=== PATIENT | male | born 1935 | race Caucasian/White ===

== ENCOUNTER 2017-11-22 11:11 | Inpatient (IN) | payer OTHER, MEDICARE ==
[~2017-11-22] VITALS: Ht 182.9 cm; Wt 80.8 kg
[2017-11-22 11:18] VITALS: BP 192/85; PULSE 88; RESP 26; TEMP 98.5; O2SAT 88
[2017-11-22] MEDS ORDERED: methylPREDNISolone SOD SUCC 125 MG/2 ML VIAL IV PUSH ONE (11:45)
[2017-11-22] MEDS ORDERED: SODIUM CHLORIDE 0.9% FLUSH 10 ML FLUSH IVF PRN (11:45)
[2017-11-22] MEDS ORDERED: NOVOLOGMXP SQ (11:49)
[2017-11-22] MEDS ORDERED: APIX5TAB PO (11:49)
[2017-11-22] MEDS ORDERED: LANTUS2P SQ (11:49)
--- NOTE | 2017-11-22 11:56 | PD ---
HPI Chief Complaint: Respiratory Symptoms Time Seen by Provider: 11:28 Travel History International Travel<30 days: No Contact w/Intl Traveler<30days: No Traveled to known affect area: No History of Present Illness HPI This patient complains of shortness of breath. Duration 2 days. Severity is severe. He arrives with hypoxic respiratory failure. History of COPD he is here on vacation and did not bring his nebulizer. He complains of cough bringing up some holcomb colored phlegm. No fever or chest pain. No alleviating factors. Symptoms exacerbated by his noncompliance. He quit smoking many years ago. [facility] Social History Alcohol Use: No Tobacco Use: No Substance Use: No Allergies-Medications (Allergen,Severity, Reaction): Coded Allergies: No Known Allergies (Unverified , 11/22/17) Reported Meds & Prescriptions Reported Meds & Active Scripts Active Reported Eliquis (Apixaban) 5 Mg Tab 5 Mg PO BID Lantus Inj (Insulin Glargine) 1,000 Unit/10 Ml Vial 1 Units SQ HS Novolog Mix 70-30 Inj (Insulin Aspart Prota 70%/Aspart 30%) 1,000 Unit/10 Ml Vial 1 Units SQ Review of Systems General / Constitutional: No: Fever Eyes: No: Visual changes HENT: Positive: Congestion, No: Headaches Cardiovascular: No: Chest Pain or Discomfort Respiratory: Positive: Cough, Shortness of Breath, Wheezing Gastrointestinal: No: Abdominal Pain Genitourinary: No: Dysuria Musculoskeletal: No: Pain Skin: No Rash Neurologic: No: Weakness Psychiatric: No: Depression Endocrine: No: Polydipsia Hematologic/Lymphatic: No: Easy Bruising Physical Exam Narrative GENERAL: Well-nourished, well-developed patient in respiratory distress. SKIN: Focused skin assessment reveals no rash and nodules. Skin is Warm and dry. HEAD: Atraumatic. Normocephalic. EYES: Pupils equal and round. No scleral icterus. No injection or drainage. ENT: No nasal bleeding or discharge. Mucous membranes pink and moist. NECK: Trachea midline. No JVD. CARDIOVASCULAR: Regular rate and rhythm. No murmur appreciated. RESPIRATORY: Positive accessory muscle use. Diffuse expiratory wheezing and rhonchi. Breath sounds equal bilaterally. GASTROINTESTINAL: Abdomen soft, non-tender, nondistended. Hepatic and splenic margins not palpable. MUSCULOSKELETAL: No obvious deformities. No clubbing. No cyanosis. No edema. NEUROLOGICAL: Awake and alert. No obvious cranial nerve deficits. Motor grossly within normal limits. Normal speech. PSYCHIATRIC: Appropriate mood and affect; insight and judgment normal. Data Data Last Documented VS Vital Signs Date Time Temp Pulse Resp B/P (MAP) Pulse Ox O2 Delivery O2 Flow Rate FiO2 11/22/17 11:41 92 4.00 11/22/17 11:38 107 20 Nasal Cannula 11/22/17 11:18 98.5 192/85 (120) Orders Orders Complete Blood Count With Diff (11/22/17 11:38) Basic Metabolic Panel (Bmp) (11/22/17 11:38) Influenzae A/B Antigen (11/22/17 11:38) Iv Access Insert/Monitor (11/22/17 11:38) Electrocardiogram (11/22/17 11:38) Ecg Monitoring (11/22/17 11:38) Oximetry (11/22/17 11:38) Oxygen Administration (11/22/17 11:38) Chest, Single Ap (11/22/17 11:38) Sodium Chloride 0.9% Flush (Ns Flush) (11/22/17 11:45) Methylprednisolone So Succ Inj (Solumedr (11/22/17 11:45) Albuterol-Ipratropium Neb (Duoneb Neb) (11/22/17 11:45) Albuterol-Ipratropium Neb (Duoneb Neb) (11/22/17 13:15) Labs Laboratory Tests Test 11/22/17 11:40 White Blood Count 13.4 TH/MM3 Red Blood Count 4.74 MIL/MM3 Hemoglobin 14.1 GM/DL Hematocrit 42.7 % Mean Corpuscular Volume 90.0 FL Mean Corpuscular Hemoglobin 29.9 PG Mean Corpuscular Hemoglobin Concent 33.2 % Red Cell Distribution Width 13.8 % Platelet Count 113 TH/MM3 Mean Platelet Volume 10.0 FL Neutrophils (%) (Auto) 90.7 % Lymphocytes (%) (Auto) 3.0 % Monocytes (%) (Auto) 5.7 % Eosinophils (%) (Auto) 0.4 % Basophils (%) (Auto) 0.2 % Neutrophils # (Auto) 12.2 TH/MM3 Lymphocytes # (Auto) 0.4 TH/MM3 Monocytes # (Auto) 0.8 TH/MM3 Eosinophils # (Auto) 0.0 TH/MM3 Basophils # (Auto) 0.0 TH/MM3 CBC Comment DIFF FINAL Differential Comment Blood Urea Nitrogen 18 MG/DL Creatinine 1.67 MG/DL Random Glucose 335 MG/DL Calcium Level 8.8 MG/DL Sodium Level 139 MEQ/L Potassium Level 4.2 MEQ/L Chloride Level 102 MEQ/L Carbon Dioxide Level 24.6 MEQ/L Anion Gap 12 MEQ/L Estimat Glomerular Filtration Rate 39 ML/MIN MDM Medical Decision Making Medical Screen Exam Complete: Yes Emergency Medical Condition: Yes Medical Record Reviewed: Yes Differential Diagnosis COPD, pneumonia, pneumothorax Narrative Course I have reviewed the patient's electronic medical record. This patient arrives critically ill and acute hypoxic respiratory failure I gave him a series of 3 nebulizer treatments and IV steroids and placed him on oxygen Room air saturation is in the upper 80s On 4 L nasal cannula is 92% I reviewed his chest x-ray which shows some nodularity but no pneumothorax or infiltrate Labs sent Labs are reviewed and in general fairly normal I gave him a fourth nebulizer treatment Patient remained short of breath and will require hospitalization He seems improved after the above treatments but still requiring significant oxygen Currently 94% on 4 L I placed a call to the medical residents to discuss Critical Care Narrative Aggregate critical care time was 40 minutes. Time to perform other separately billable procedures was not included in the critical care time. My time did not include minutes spent treating any other patients simultaneously or on activities that did not directly contribute to the patient's treatment. The services I provided to this patient were to treat and/or prevent clinically significant deterioration that could result in: Respiratory failure, cardiopulmonary arrest, cardiac arrhythmia I provided critical care services requiring my management, as noted below: Chart data review, documentation time, medication orders and management, vital sign assessments/reviewing monitor data, ordering and reviewing lab tests, ordering and interpreting/reviewing x-rays and diagnostic studies, care of the patient and discussion of the patient with the admitting physicians. Diagnosis Primary Impression: Acute respiratory failure with hypoxia Additional Impression: COPD with acute exacerbation Admitting Information Admitting Physician Requests: Harshil Lee MD November 22, 2017 11:56
--- NOTE | 2017-11-22 12:11 | RADRPT ---
EXAM DATE: 11/22/2017 12:00 PM EDT AGE/SEX: 82 years / Male INDICATIONS: Short of breath and difficulty breathing. CLINICAL DATA: This is the patient's initial encounter. Patient reports that signs and symptoms have been present for 1 day and indicates a pain score of 0/10. MEDICAL/SURGICAL HISTORY: Hypertension. Chronic obstructive pulmonary disease. Carcinoma, col on. . Colon resection. COMPARISON: No prior exams available for comparison. FINDINGS: There are 2 faint nodular densities in the right lung each measuring about 1 cm in diameter. No prior study for comparison. Further evaluation with chest CT is recommended. No effusion or pneumothorax. Heart size normal. No focal consolidation. CONCLUSION: Nodular densities in the right lung. Further evaluation with chest CT is recommended. Electronically signed by: Phil Tompkins MD 11/22/2017 12:09 PM EDT
[2017-11-22 12:13] LABS: AUTOMATED NEUTROPHIL # 12.2 TH/MM3 (1.8-7.7); BASOPHIL % 0.2 % (0.0-2.0); EOSINOPHIL % 0.4 % (0.0-4.0); HEMATOCRIT 42.7 % (39.0-51.0); HEMOGLOBIN 14.1 GM/DL (13.0-17.0); LYMPHOCYTE # 0.4 TH/MM3 (1.0-4.8); MEAN CORPUSCULAR HEMOGLOBIN 29.9 PG (27.0-34.0); MEAN CORPUSCULAR HGB CONC 33.2 % (32.0-36.0); MONO % 5.7 % (0.0-8.0); MONOCYTE # 0.8 TH/MM3 (0-0.9); NEUT % 90.7 % (16.0-70.0); PLATELET COUNT 113 TH/MM3 (150-450); RED BLOOD COUNT 4.74 MIL/MM3 (4.50-5.90); RED CELL DISTRIBUTION WIDTH 13.8 % (11.6-17.2); WHITE BLOOD COUNT 13.4 TH/MM3 (4.0-11.0)
[2017-11-22] MEDS: RESP: ALBUTEROL 2.5 MG/IPRATROPIUM 0.5 MG NEB (SCH) INH ×2 (12:22→19:27)
[2017-11-22 12:34] LABS: BICARBONATE 24.6 MEQ/L (21.0-32.0); CALCIUM 8.8 MG/DL (8.5-10.1); CREATININE 1.67 MG/DL (0.60-1.30)
[2017-11-22] MEDS ORDERED: RESP: ALBUTEROL 2.5 MG/IPRATROPIUM 0.5 MG NEB (SCH) NEB ONE (13:15)
[2017-11-22] MEDS ORDERED: MAGNESIUM HYDROXIDE SUSP 30 ML CUP PO PRN (14:15)
[2017-11-22] MEDS ORDERED: MORPHINE SULFATE 2 MG/ML SYRINGE IV PUSH PRN ×2 (14:15)
[2017-11-22] MEDS ORDERED: ONDANSETRON ODT 4 MG TAB PO PRN (14:15)
[2017-11-22] MEDS ORDERED: NALOXONE HCL 0.4 MG/ML AMP IV PUSH PRN (14:15)
[2017-11-22] MEDS ORDERED: RESP: ALBUTEROL 2.5 MG/3 ML NEB (PRN) INH (14:15)
[2017-11-22] MEDS ORDERED: SODIUM CHLORIDE 0.9% FLUSH 10 ML FLUSH IV FLUSH PRN (14:15)
--- NOTE | 2017-11-22 14:42 | HHI.HP ---
HPI Service [facility] Primary Care Physician Non-Staff Admission Diagnosis Diagnoses: Travel History International Travel<30 Days: No Contact w/Intl Traveler <30 Da: No Traveled to Known Affected Are: No History of Present Illness Mr. Villafuerte is an 82 year old male. He is vacationing here from [place], [place]. he came in with shortness of breath. Productive cough is also present. No pneumonia is present on imaging. Bronchitis could be present. He has COPD at baseline. He has had exacerbations and hospitalizations for COPD exacerbation before in the past. No fevers reported. No chest pain. Vital signs show hypoxia at time of arrival the patient has had good response thus far to steroids, breathing treatments, and oxygen. He is resting comfortably in bed when seen. His sister and are present. No other complaints or concerns today. Review of Systems Constitutional: COMPLAINS OF: Fatigue, DENIES: Fever, Chills Eyes: COMPLAINS OF: Vision loss, DENIES: Diplopia, Eye inflammation, Eye pain Ears, nose, mouth, throat: COMPLAINS OF: Hearing loss, DENIES: Vertigo, Nasal discharge Respiratory: COMPLAINS OF: Cough, Wheezing, Shortness of breath Cardiovascular: DENIES: Chest pain, Palpitations, Syncope Gastrointestinal: DENIES: Abdominal pain, Black stools, Bloody stools Musculoskeletal: DENIES: Joint pain, Muscle aches, Stiffness Integumentary: DENIES: Abnormal pigmentation, Nail changes, Pruritus, Rash Hematologic/lymphatic: DENIES: Bruising, Lymphadenopathy Immunologic/allergic: DENIES: Eczema, Urticaria Neurologic: DENIES: Abnormal gait, Headache, Paresthesias Psychiatric: DENIES: Anxiety, Confusion, Mood changes, Hallucinations Except as stated in HPI: all other systems reviewed are Neg Past Family Social History Past Medical History COPD History of pericarditis Diabetes mellitus type 2 Glaucoma Presbycusis History of colon cancer Past Surgical History Partial colectomy related to colon cancer Reported Medications Reported Meds & Active Scripts Active Reported Eliquis (Apixaban) 5 Mg Tab 5 Mg PO BID Lantus Inj (Insulin Glargine) 1,000 Unit/10 Ml Vial 1 Units SQ HS Novolog Mix 70-30 Inj (Insulin Aspart Prota 70%/Aspart 30%) 1,000 Unit/10 Ml Vial 1 Units SQ Allergies: Coded Allergies: No Known Allergies (Unverified , 11/22/17) Family History Diabetes mellitus type 2 and CVA are present in multiple family members. The patient's father had congestive heart failure. 2 of the patient's brothers had lung cancer (smoking-related) Social History Past history of smoking, patient has not smoked for greater than 1 decade No alcohol abuse No illicit drug abuse Physical Exam Vital Signs Vital Signs Date Time Temp Pulse Resp B/P (MAP) Pulse Ox O2 Delivery O2 Flow Rate FiO2 11/22/17 11:41 92 4.00 11/22/17 11:38 107 20 92 Nasal Cannula 4.00 11/22/17 11:18 98.5 88 26 192/85 (120) 88 Physical Exam GENERAL: NAD, A&Ox3 HEAD: Normocephalic. NECK: Supple, trachea midline. No lymphadenopathy. EYES: No scleral icterus. No injection or drainage. CARDIOVASCULAR: Regular rate and rhythm without murmurs, gallops, or rubs. RESPIRATORY: Breath sounds equal bilaterally. No accessory muscle use. GASTROINTESTINAL: Abdomen soft, non-tender, nondistended. MUSCULOSKELETAL: No cyanosis, or edema. SKIN: Warm and dry. NEURO: No focal neurological deficitis. Laboratory Laboratory Tests Test 11/22/17 11:40 White Blood Count 13.4 Red Blood Count 4.74 Hemoglobin 14.1 Hematocrit 42.7 Mean Corpuscular Volume 90.0 Mean Corpuscular Hemoglobin 29.9 Mean Corpuscular Hemoglobin Concent 33.2 Red Cell Distribution Width 13.8 Platelet Count 113 Mean Platelet Volume 10.0 Neutrophils (%) (Auto) 90.7 Lymphocytes (%) (Auto) 3.0 Monocytes (%) (Auto) 5.7 Eosinophils (%) (Auto) 0.4 Basophils (%) (Auto) 0.2 Neutrophils # (Auto) 12.2 Lymphocytes # (Auto) 0.4 Monocytes # (Auto) 0.8 Eosinophils # (Auto) 0.0 Basophils # (Auto) 0.0 CBC Comment DIFF FINAL Differential Comment Blood Urea Nitrogen 18 Creatinine 1.67 Random Glucose 335 Calcium Level 8.8 Sodium Level 139 Potassium Level 4.2 Chloride Level 102 Carbon Dioxide Level 24.6 Anion Gap 12 Estimat Glomerular Filtration Rate 39 Date/Time Source Procedure Growth Status 11/22/17 11:46 Nasal Washing Influenza Types A,B Antigen (ABDOULAYE) - Final NEGATIVE FOR FLU A AND B ANTIGEN.... Complete Result Diagram: 11/22/17 1140 11/22/17 1140 Imaging Last Impressions Chest X-Ray 11/22/17 1138 Signed Impressions: CONCLUSION: Nodular densities in the right lung. Further evaluation with chest CT is recomm ended. Caprini VTE Risk Assessment Caprini VTE Risk Assessment: Mod/High Risk (score >= 2) Caprini Risk Assessment Model Point Value = 1 Point Value = 2 Point Value = 3 Point Value = 5 Age 41-60 Minor surgery BMI > 25 kg/m2 Swollen legs Varicose veins or History of unexplained or recurrent spontaneous Oral contraceptives or hormone replacement Sepsis (< 1 month) Serious lung disease, including pneumonia (< 1 month) Abnormal pulmonary function Acute myocardial infarction Congestive heart failure (< 1 month) History of inflammatory bowel disease Medical patient at bed rest Age 61-74 Arthroscopic surgery Major open surgery (> 45 min) Laparoscopic surgery (> 45 min) Malignancy Confined to bed (> 72 hours) Immobilizing plaster cast Central venous access Age >= 75 History of VTE Family history of VTE Factor V Leiden Prothrombin [id number] Lupus anticoagulant Anticardiolipin antibodies Elevated serum homocysteine Heparin-induced thrombocytopenia Other congenital or acquired thrombophilia Stroke (< 1 month) Elective arthroplasty Hip, pelvis, or leg fracture Acute spinal cord injury (< 1 month) Prophylaxis Regimen Total Risk Factor Score Risk Level Prophylaxis Regimen 0-1 Low Early ambulation 2 Moderate Order ONE of the following: *Sequential Compression Device (SCD) *Heparin 5000 units SQ BID 3-4 Higher Order ONE of the following medications: *Heparin 5000 units SQ TID *Enoxaparin/Lovenox 40 mg SQ daily (WT < 150 kg, CrCl > 30 mL/min) *Enoxaparin/Lovenox 30 mg SQ daily (WT < 150 kg, CrCl > 10-29 mL/min) *Enoxaparin/Lovenox 30 mg SQ BID (WT < 150 kg, CrCl > 30 mL/min) AND/OR *Sequential Compression Device (SCD) 5 or more Highest Order ONE of the following medications: *Heparin 5000 units SQ TID (Preferred with Epidurals) *Enoxaparin/Lovenox 40 mg SQ daily (WT < 150 kg, CrCl > 30 mL/min) *Enoxaparin/Lovenox 30 mg SQ daily (WT < 150 kg, CrCl > 10-29 mL/min) *Enoxaparin/Lovenox 30 mg SQ BID (WT < 150 kg, CrCl > 30 mL/min) AND *Sequential Compression Device (SCD) Assessment and Plan Problem List: (1) Acute respiratory failure with hypoxia ICD Code: J96.01 - Acute respiratory failure with hypoxia Status: Acute (2) COPD with acute exacerbation ICD Code: J44.1 - Chronic obstructive pulmonary disease with (acute) exacerbation Status: Acute Assessment and Plan 82-year-old male admitted secondary to COPD exacerbation with hypoxia COPD exacerbation Hypoxia Continue oxygen supplements as needed Schedule duo nebs When necessary albuterol Azithromycin Systemic steroids Follow for improvement in respiratory status Follow for improvement in exertional tolerance next Diabetes mellitus type 2 Follow blood sugars Insulin sliding scale Diabetic diet DVT prophylaxis Lovenox, SCDs Physician Certification 2 Midnight Certification Type: Admission for Inpatient Services Order for Inpatient Services The services are ordered in accordance with Medicare regulations or non- Medicare payer requirements, as applicable. In the case of services not specified as inpatient-only, they are appropriately provided as inpatient services in accordance with the 2-midnight benchmark. Estimated LOS (days): 2 days is the estimated time the patient will need to remain in the hospital, assuming treatment plan goals are met and no additional complications. Post-Hospital Plan: Home Oswaldo Milian MD November 22, 2017 14:42
[2017-11-22] MEDS ORDERED: GLUCAGON 1 MG/ML VIAL OTHER PRN (14:45)
[2017-11-22] MEDS ORDERED: DEXTROSE 50% IN WATER 50 ML VIAL(D50) IV PUSH PRN (14:45)
[2017-11-22] MEDS ORDERED: ENOXAPARIN SODIUM 40 MG/0.4 ML SYRINGE SQ SCH (15:00)
[2017-11-22 16:18] VITALS: BP 142/68; PULSE 94; RESP 22; O2SAT 94
[2017-11-22] MEDS: AZITHROMYCIN INJ 500 MG in SODIUM CHLOR 0.9% 250 ML INJ 250 ML IV SCH (16:24)
[2017-11-22 17:45] VITALS: BP 124/57; PULSE 81; RESP 18; TEMP 98; O2SAT 93
[2017-11-22] MEDS: INSULIN ASPART SUPPLEMENTAL SCALE SQ SCH ×2 (18:25→20:49)
[2017-11-22 19:27] VITALS: O2SAT 92
[2017-11-22 20:00] VITALS: BP 160/70; PULSE 85; RESP 19; TEMP 98.3; O2SAT 95
[2017-11-22] MEDS ORDERED: INSULIN DETEMIR 100 UNITS/ML VIAL SQ SCH ×2 (21:00)
[2017-11-22] MEDS ORDERED: INSULIN ASPART 1,000 UNITS/10 ML VIAL SQ ONE (21:15)
[2017-11-22] MEDS ORDERED: ZOLPIDEM TARTRATE 5 MG TAB PO ONE (21:30)
[2017-11-22] MEDS: APIXABAN 5 MG TABLET PO SCH (22:04)
[2017-11-22] MEDS: predniSONE 20 MG TAB PO SCH (22:08)
[2017-11-22] MEDS: SODIUM CHLORIDE 0.9% FLUSH 10 ML FLUSH IV FLUSH SCH (22:09)
[2017-11-23] VITALS: BP 120/58; PULSE 76; RESP 17; TEMP 98.2; O2SAT 97
[2017-11-23 04:00] VITALS: BP 143/65; PULSE 80; RESP 17; TEMP 98.3; O2SAT 93
[2017-11-23 07:23] LABS: AUTOMATED NEUTROPHIL # 10.7 TH/MM3 (1.8-7.7); BASOPHIL % 0.1 % (0.0-2.0); HEMATOCRIT 37.6 % (39.0-51.0); HEMOGLOBIN 12.4 GM/DL (13.0-17.0); LYMPH % 3.1 % (9.0-44.0); LYMPHOCYTE # 0.3 TH/MM3 (1.0-4.8); MEAN CELL VOLUME 89.6 FL (80.0-100.0); MEAN CORPUSCULAR HEMOGLOBIN 29.5 PG (27.0-34.0); MEAN CORPUSCULAR HGB CONC 32.9 % (32.0-36.0); MEAN PLATELET VOLUME 10.6 FL (7.0-11.0); MONO % 2.4 % (0.0-8.0); MONOCYTE # 0.3 TH/MM3 (0-0.9); NEUT % 94.4 % (16.0-70.0); PLATELET COUNT 99 TH/MM3 (150-450); RED BLOOD COUNT 4.19 MIL/MM3 (4.50-5.90); RED CELL DISTRIBUTION WIDTH 13.9 % (11.6-17.2); WHITE BLOOD COUNT 11.4 TH/MM3 (4.0-11.0)
[2017-11-23] MEDS: RESP: ALBUTEROL 2.5 MG/IPRATROPIUM 0.5 MG NEB (SCH) INH ×2 (07:49→13:48)
[2017-11-23 07:50] VITALS: O2SAT 91
[2017-11-23 08:00] VITALS: BP 154/68; PULSE 92; RESP 18; TEMP 98.5; O2SAT 95
[2017-11-23] MEDS: APIXABAN 5 MG TABLET PO SCH (08:19)
[2017-11-23] MEDS: SODIUM CHLORIDE 0.9% FLUSH 10 ML FLUSH IV FLUSH SCH (08:19)
[2017-11-23] MEDS: predniSONE 20 MG TAB PO SCH (08:19)
[2017-11-23] MEDS: INSULIN ASPART SUPPLEMENTAL SCALE SQ SCH (08:19)
[2017-11-23 08:36] LABS: ALBUMIN 2.9 GM/DL (3.4-5.0); ALKALINE PHOSPHATASE 226 U/L (45-117); ALT (GPT) 15 U/L (12-78); AST (GOT) 13 U/L (15-37); BICARBONATE 22.2 MEQ/L (21.0-32.0); BLOOD UREA NITROGEN 35 MG/DL (7-18); CALCIUM 8.6 MG/DL (8.5-10.1); CHLORIDE 104 MEQ/L (98-107); CREATININE 1.79 MG/DL (0.60-1.30); GLOMERULAR FILTRATION RATE 36 ML/MIN (>89); GLUCOSE,RANDOM 440 MG/DL (74-106); SODIUM (NA) 138 MEQ/L (136-145); TOTAL BILIRUBIN ADULT 0.3 MG/DL (0.2-1.0); TOTAL PROTEIN 6.8 GM/DL (6.4-8.2)
[2017-11-23 12:00] VITALS: BP 150/73; PULSE 89; RESP 18; TEMP 98.3; O2SAT 94
[2017-11-23] MEDS ORDERED: GLUCAGON 1 MG/ML VIAL OTHER PRN ×2 (12:00→14:15)
[2017-11-23] MEDS ORDERED: INSULIN ASPART SUPPLEMENTAL SCALE SQ SCH (12:00)
[2017-11-23] MEDS ORDERED: DEXTROSE 50% IN WATER 50 ML VIAL(D50) IV PUSH PRN ×2 (12:00→14:15)
[2017-11-23] MEDS ORDERED: RESP: BUDESONIDE 0.5 MG/2 ML NEB NEB SCH (12:15)
[2017-11-23] MEDS ORDERED: methylPREDNISolone SOD SUCC 125 MG/2 ML VIAL IV PUSH ONE (12:15)
[2017-11-23] MEDS: INSULIN ASPART SUPPLEMENTAL SCALE SQ PRN ×2 (14:28→16:06)
--- NOTE | 2017-11-23 14:56 | EKG ---
Date Performed: 11/22/2017 Time Performed: 11:46:50 PTAGE: 82 years EKG: ECTOPIC ATRIAL TACHYCARDIA LEFT ATRIAL ENLARGEMENT LOW QRS VOLTAGE IN EXTREMITY LEADS POSSI BLE RIGHT VENTRICULAR CONDUCTION DELAY NONSPECIFIC T-WAVE ABNORMALITY ABNORMAL ECG NO PREVIOUS TRACING DOCTOR: Madi Richardson Interpretating Date/Time 11/23/2017 14:53:23
[2017-11-23] MEDS ORDERED: Albuterol-Ipratropium Neb INH (15:43)
[2017-11-23] MEDS ORDERED: AZIT500T2 PO (15:43)
[2017-11-23] MEDS ORDERED: VENTAER INH (15:43)
[2017-11-23] MEDS ORDERED: PRED10PA2 PO (15:43)
[2017-11-23] MEDS ORDERED: IPRA17I INH (15:43)
[2017-11-23] MEDS ORDERED: NEBULIZER1 MI1 (15:48)
[2017-11-23 16:00] VITALS: BP 152/73; PULSE 91; RESP 18; TEMP 98; O2SAT 94
[2017-11-23] MEDS: AZITHROMYCIN INJ 500 MG in SODIUM CHLOR 0.9% 250 ML INJ 250 ML IV SCH (16:06)
--- NOTE | 2017-11-23 16:11 | HHI.DS ---
Discharge Summary Admission Date November 22, 2017 at 15:31 Discharge Date: Nov 23, 2017 Admitting Diagnosis (1) Acute respiratory failure with hypoxia ICD Code: J96.01 - Acute respiratory failure with hypoxia Status: Acute (2) COPD with acute exacerbation ICD Code: J44.1 - Chronic obstructive pulmonary disease with (acute) exacerbation Status: Acute Procedures none Brief History - From Admission Mr. Villafuerte is an 82 year old male. He is vacationing here from [place], [place]. he came in with shortness of breath. Productive cough is also present. No pneumonia is present on imaging. Bronchitis could be present. He has COPD at baseline. He has had exacerbations and hospitalizations for COPD exacerbation before in the past. No fevers reported. No chest pain. Vital signs show hypoxia at time of arrival the patient has had good response thus far to steroids, breathing treatments, and oxygen. He is resting comfortably in bed when seen. His sister and are present. No other complaints or concerns today. CBC/BMP: 11/23/17 0656 11/23/17 0656 Significant Findings Laboratory Tests Test 11/22/17 11:40 11/22/17 20:55 11/23/17 06:56 White Blood Count 13.4 TH/MM3 (4.0-11.0) 11.4 TH/MM3 (4.0-11.0) Platelet Count 113 TH/MM3 (150-450) 99 TH/MM3 (150-450) Neutrophils (%) (Auto) 90.7 % (16.0-70.0) 94.4 % (16.0-70.0) Lymphocytes (%) (Auto) 3.0 % (9.0-44.0) 3.1 % (9.0-44.0) Neutrophils # (Auto) 12.2 TH/MM3 (1.8-7.7) 10.7 TH/MM3 (1.8-7.7) Lymphocytes # (Auto) 0.4 TH/MM3 (1.0-4.8) 0.3 TH/MM3 (1.0-4.8) Creatinine 1.67 MG/DL (0.60-1.30) 1.79 MG/DL (0.60-1.30) Random Glucose 335 MG/DL (74-106) 514 MG/DL (74-106) 440 MG/DL (74-106) Estimat Glomerular Filtration Rate 39 ML/MIN (>89) 36 ML/MIN (>89) Red Blood Count 4.19 MIL/MM3 (4.50-5.90) Hemoglobin 12.4 GM/DL (13.0-17.0) Hematocrit 37.6 % (39.0-51.0) Platelet Estimate LOW (NORMAL) Blood Urea Nitrogen 35 MG/DL (7-18) Albumin 2.9 GM/DL (3.4-5.0) Alkaline Phosphatase 226 U/L (45-117) Aspartate Amino Transf (AST/SGOT) 13 U/L (15-37) Hospital Course 82-year-old male who presented to the emergency room yesterday following a COPD exacerbation that he awoke with at 5 AM. Patient was very interested in going home today if possible. He is here on vacation with family and has a Caravan of family members leaving [place] at 4am. He responded favorably to IV steroids today. Unfortunately the IV steroids has driven up his blood sugar level which we are dealing with currently. His previous blood sugar was in the 500s and now he is down to 392. I performed an oxygen walk test with him having him ambulate down the penn and back to his room approximately 150 feet. He performed well and his oxygen dropped as low as 89% but rebounded quickly to an average of 90-91% during ambulation and back up to 92-93% at rest after 10 minutes. His baseline currently is 93% resting comfortably in bed without dyspnea or tachycardia. I have given scripts to his family to obtain a nebulizer machine and I gave him duo nebs that he can use every 4 hours scheduled over the next few days. He has a 10 mg prednisone taper pack with 48 pills. He has azithromycin 500 mg ordered for the next 5 days in addition to the doses he received here. I have explained to him that he is adopting some risk by requesting to be discharged so early, but the family understands this and is still requesting for him to be sent home. They will be obtaining a home pulse oximeter and they understand that if his oxygen is unable to be maintained above 88% that he should go to the ER immediately. He has a follow- up planned for Sunday with his primary care doctor. Pt Condition on Discharge: Fair Discharge Disposition: Discharge Home Discharge Time: <= 30 minutes Discharge Instructions DIET: Follow Instructions for: Diabetic Diet Activities you can perform: See Additionl Instruction Other Activity Instructions: No driving, no uneccessary exertion Juan Milian MD Nov 23, 2017 16:11
== END 2017-11-23 18:32 | disposition home or self-care (01) | DRG 190 ==
LOC: NEPE 11:11 → NEDA 15:31 → N04A 17:53
PROVIDERS: ADMIT Family Medicine; ATTEND Family Medicine
DX: J44.1 Chronic obstructive pulmonary disease with (acute) exacerbation (principal); J96.01 Acute respiratory failure with hypoxia; E11.9 Type 2 diabetes mellitus without complications; Z85.038 Personal history of other malignant neoplasm of large intestine; Z90.49 Acquired absence of other specified parts of digestive tract; Z79.01 Long term (current) use of anticoagulants; Z79.4 Long term (current) use of insulin; Z87.891 Personal history of nicotine dependence
CPT/HCPCS: 71045; 80048; 80053; 82947; 82948; 85025; 87804; 93005; 94640; 94664; 96374; J0456; J1815; J2930; J7050; J7512